=== PATIENT | male | born 1985 | race African-American/Black ===

== ENCOUNTER → 2021-09-09 | Outpatient (CLI) | payer BC, MEDICAID ==
--- NOTE | 2021-09-09 11:18 | US ---
EXAMINATION TYPE: US abdomen complete DATE OF EXAM: 09/09/2021 COMPARISON: NONE CLINICAL HISTORY: R10.9 Abdominal Pain. Pt states generalized ABD pain and nausea EXAM MEASUREMENTS: Liver Length: 14.2 cm Gallbladder Wall: 0.2 cm CBD: 0.4 cm Spleen: 8.9 cm Right Kidney: 9.8 x 5.2 x 5.8 cm Left Kidney: 10.0 x 6.3 x 5.8 cm Pancreas: wnl, tail obscured by overlying bowel gas Liver: wnl Gallbladder: wnl Evidence for sonographic Wooten's sign: No CBD: wnl Spleen: wnl Right Kidney: wnl, lower pole gassed out Left Kidney: wnl Upper IVC: wnl Abd Aorta: wnl No abnormality visualized to account for pt's symptoms- Results called to Joanne at 's office at time of exam The liver is homogenous. The intrahepatic portion of the IVC and visualized abdominal aorta are with in normal limits. There is no evidence of cholelithiasis. Common bile duct is unremarkable. The vi sualized portions of the pancreas are homogenous. The spleen is unremarkable. Kidneys are symmetric and free of hydronephrosis. No renal lesions are seen. IMPRESSION: No acute findings identified on images saved.
[2021-09-09 11:43] LABS: Basophils % (A) 1 %; Eosinophils # (A) 0.4 k/uL (0-0.7); Eosinophils % (A) 8 %; HCT 47.8 % (39.0-53.0); HGB 15.6 gm/dL (13.0-17.5); Lymphocytes # (A) 1.2 k/uL (1.0-4.8); Lymphocytes % (A) 27 %; MCH 28.7 pg (25.0-35.0); MCHC 32.7 g/dL (31.0-37.0); MCV 87.8 fL (80.0-100.0); Monocytes # (A) 0.4 k/uL (0-1.0); Monocytes % (A) 8 %; Neutrophils # (A) 2.4 k/uL (1.3-7.7); Neutrophils % (A) 53 %; Platelet Count 317 k/uL (150-450); RBC 5.44 m/uL (4.30-5.90); RDW 13.3 % (11.5-15.5); WBC 4.5 k/uL (3.8-10.6)
[2021-09-09 12:08] LABS: Albumin 4.6 g/dL (3.5-5.0); Calcium 10.1 mg/dL (8.4-10.2); Potassium 4.6 mmol/L (3.5-5.1); Total Bilirubin 0.8 mg/dL (0.2-1.3); Total Protein 7.6 g/dL (6.3-8.2)
== END | disposition home or self-care (01) ==
LOC: RADUSWWP 10:35
PROVIDERS: ATTEND Family Medicine
DX: R10.84 Generalized abdominal pain (principal); R11.0 Nausea
CPT/HCPCS: 36415; 76700; 80053; 85025

== ENCOUNTER → 2021-09-16 | Outpatient (CLI) | payer BC ==
--- NOTE | 2021-09-16 14:16 | CT ---
EXAMINATION TYPE: CT abdomen pelvis w con DATE OF EXAM: 09/16/2021 COMPARISON: Ultrasound 09/09/2021 HISTORY: Generalized pain with nausea and constipation CT DLP: 821.1 mGycm Automated exposure control for dose reduction was used. CONTRAST: CT scan of the abdomen pelvis is performed with IV Contrast, patient injected with 100 mL of Isovue 3 00. FINDINGS- LUNG BASES- No significant abnormality is appreciated. LIVER/GB- No gross abnormality is appreciated. PANCREAS- No gross abnormality is seen. SPLEEN- No gross abnormality is seen. ADRENALS- No gross abnormality is seen. KIDNEYS/BLADDER- no hydronephrosis nephrolithiasis or renal mass. BOWEL-bowel gas pattern nonspecific with no obstruction. Small hiatal hernia noted. Portions of the c olon are decompressed limiting evaluation. Correlate with direct visualization as clinically warrante d appendix not seen with certainty. LYMPH NODES- No greater than 1cm abdominal or pelvic lymph nodes areappreciated. OSSEOUS STRUCTURES- No significant abnormality is seen. OTHER- aorta of normal caliber. Vascular calcifications in the pelvis. No sizable fluid collection. IMPRESSION- 1.
== END | disposition home or self-care (01) ==
LOC: RADCTMAIN 11:04
PROVIDERS: ATTEND Family Medicine
DX: K59.00 Constipation, unspecified (principal); K44.9 Diaphragmatic hernia without obstruction or gangrene
CPT/HCPCS: 74177; Q9967

== ENCOUNTER → 2021-09-29 | Outpatient (CLI) | payer BC ==
--- NOTE | 2021-09-29 11:01 | NM ---
EXAMINATION TYPE: NM myocardial SPECT single DATE OF EXAM: 09/29/2021 COMPARISON: NONE HISTORY: Syncope Following administration of 9.6 mCi Tc 99m Sestamibi. Images obtained 55 minutes post injection. FINDINGS: Only rest images are submitted. There is suggestion of a defect along the inferior lateral inferior w all myocardium which likely is artifactual not replicated additional images. Correlate with EKG. Lack of stress images results in essentially nondiagnostic exam. IMPRESSION: Nondiagnostic exam. See above.
== END | disposition home or self-care (01) ==
LOC: RADNMMAIN 08:01
PROVIDERS: ATTEND Family Medicine
DX: R55 Syncope and collapse (principal)
CPT/HCPCS: 78451; A9500

== ENCOUNTER 2021-11-22 22:23 | Emergency (ER) | payer BC ==
[2021-11-22 22:28] VITALS: BP 159/99; RESP 18
[2021-11-22] MEDS ORDERED: IBUPROFEN 600 MG TAB PO STA (22:51)
[2021-11-22] MEDS ORDERED: ACETAMINOPHEN TAB 500 MG TAB PO STA (22:51)
--- NOTE | 2021-11-22 23:04 | ED ---
Headache HPI - General Chief Complaint: Headache Stated Complaint: Headache Time Seen by Provider: 11/22/21 22:45 Mode of arrival: ambulatory Limitations: no limitations - History of Present Illness Initial Comments: 36 year-old male patient presents for evaluation of cough, headache, body aches, and fever. States symptoms started yesterday. States he did take tylenol earlier in the day and Mucinex DM around 2100. States medications did not help his symptoms. Denies any sputum production with this cough. Denies any chest pain or shortness of breath. Denies nausea, vomiting, or diarrhea. States he did have Covid in February. Denies having flu shot. Patient denies any recent rash, abdominal pain, constipation, back pain, numbness, tingling, dizziness, weakness, hematuria, dysuria, urinary urgency, urinary frequency, visual changes, or any other complaints. - Related Data Previous Rx's Medication Instructions Recorded Dicyclomine [Bentyl] 10 mg PO TID #20 capsule 01/20/15 metroNIDAZOLE [Flagyl] 500 mg PO Q8HR #60 tab 01/28/15 Allergies Allergy/AdvReac Type Severity Reaction Status Date / Time Penicillins Allergy Anaphylaxis Verified 11/22/21 22:28 Review of Systems ROS Statement: Those systems with pertinent positive or pertinent negative responses have been documented in the HPI. ROS Other: All systems not noted in ROS Statement are negative. Past Medical History Past Medical History: No Reported History Additional Past Medical History / Comment(s): migraines, constipation, diarrhea, blood in stool History of Any Multi-Drug Resistant Organisms: None Reported Past Surgical History: No Surgical Hx Reported Additional Past Surgical History / Comment(s): dental Past Anesthesia/Blood Transfusion Reactions: No Reported Reaction Past Psychological History: No Psychological Hx Reported Smoking Status: Never smoker Past Alcohol Use History: Occasional Past Drug Use History: None Reported General Exam Limitations: no limitations General appearance: alert, in no apparent distress, other (This is a well- developed, well-nourished adult male in no acute distress.) Eye exam: Present: normal appearance, PERRL, EOMI. Absent: scleral icterus, conjunctival injection, periorbital swelling ENT exam: Present: normal exam, normal oropharynx, mucous membranes moist, TM's normal bilaterally Respiratory exam: Present: normal lung sounds bilaterally. Absent: respiratory distress, wheezes, rales, rhonchi, stridor Cardiovascular Exam: Present: regular rate, normal rhythm, normal heart sounds. Absent: systolic murmur, diastolic murmur, rubs, gallop, clicks GI/Abdominal exam: Present: soft, normal bowel sounds. Absent: distended, tenderness, guarding, rebound, rigid Neurological exam: Present: alert, oriented X3, CN II-XII intact Psychiatric exam: Present: normal affect, normal mood Skin exam: Present: warm, dry, intact, normal color. Absent: rash Course Vital Signs 11/22/21 22:24 Temperature 102.0 F H Pulse Rate 114 H Respiratory 18 Rate Blood Pressure 159/99 O2 Sat by Pulse 98 Oximetry Medical Decision Making - Medical Decision Making 36 year-old male patient presents to the emergency department today for evaluation of headache, fever, body aches, cough, and congestion. He was 102F on arrival. He lungs are clear to auscultation, abdomen soft and nontender. He was given Tylenol and Motrin. Chest x-ray negative. Tested negative for cold did and influenza. I did discuss findings and results with him. We discussed viral syndrome as a cause for his symptoms. We discussed possibility of false negatives on his PCR tests. He will be discharged with instructions to take, Motrin for fevers. Increase fluids. Rest. Return parameters were discussed in detail. He verbalizes understanding and agrees with this plan. My attending is Dr. Childers. - Lab Data Lab Results 11/22/21 11/22/21 Range/Units 22:31 23:09 Coronavirus (PCR) Not Detected (Not Detectd) Influenza Type A RNA Not Detected (Not Detectd) Influenza Type B (PCR) Not Detected (Not Detectd) - Radiology Data Radiology results: report reviewed, image reviewed 2 views of the chest are obtained. Report was reviewed in its entirety. Impression by Dr. Betancur shows normal chest. Disposition Clinical Impression: Viral syndrome, Upper respiratory infection Disposition: HOME SELF-CARE Condition: Good Instructions (If sedation given, give patient instructions): Upper Respiratory Infection (ED), Viral Syndrome (ED) Additional Instructions: Tips to help you feel better: -Maintain adequate fluid intake - especially water. -Rest, you are healing your body will require extra sleep. -Eat even if you do not feel like it - broth, jello, toast are fine if you cannot eat full meals. -Take tylenol and motrin alternating (if you have no allergies or have not been instructed to avoid these medications) to help with body aches and fevers. -Obtain over the counter vitamin C, zinc, and vitamin D3. -Take medications as prescribed. Follow-up with your primary care physician for recheck in 1-2 days. Return for any new, worsening, or concerning symptoms. Is patient prescribed a controlled substance at d/c from ED?: No Referrals: Ernesto Dowd MD [Primary Care Provider] - 1-2 days Time of Disposition: 00:19
--- NOTE | 2021-11-23 00:15 | XR ---
EXAMINATION TYPE: XR chest 2V DATE OF EXAM: 11/23/2021 COMPARISON: NONE HISTORY: Headache TECHNIQUE: 2 views FINDINGS: Heart and mediastinum are normal. Lungs are clear. Diaphragm is normal. Bony thorax is inta ct. IMPRESSION: Normal chest.
[2021-11-23 00:32] VITALS: PULSE 89; TEMP 99.2
== END 2021-11-23 00:32 | disposition home or self-care (01) ==
LOC: EC 22:23
DX: J06.9 Acute upper respiratory infection, unspecified (principal); G40.909 Epilepsy, unspecified, not intractable, without status epilepticus; B34.9 Viral infection, unspecified; Z72.89 Other problems related to lifestyle
CPT/HCPCS: 71046; 87502; 87635; 99284

== ENCOUNTER 2021-12-21 11:12 | Emergency (ER) | payer BC ==
[2021-12-21 11:16] VITALS: BP 148/101; PULSE 68; RESP 18; TEMP 98.2
--- NOTE | 2021-12-21 12:34 | ED ---
General Adult HPI - General Chief complaint: Upper Respiratory Infection Stated complaint: covid test Time Seen by Provider: 12/21/21 11:19 Source: patient Mode of arrival: ambulatory Limitations: no limitations - History of Present Illness Initial comments: 36-year-old male presents to the emergency room for a chief complaint of COVID- 19 test. Patient states that he was exposed to COVID-19 4 days ago. States that his work wanted him to have a negative test before returning. Patient denies any symptoms or fevers.Patient has no other complaints at this time including shortness of breath, chest pain, abdominal pain, nausea or vomiting, headache, or visual changes. - Related Data Previous Rx's Medication Instructions Recorded Dicyclomine [Bentyl] 10 mg PO TID #20 capsule 01/20/15 metroNIDAZOLE [Flagyl] 500 mg PO Q8HR #60 tab 01/28/15 Allergies Allergy/AdvReac Type Severity Reaction Status Date / Time Penicillins Allergy Anaphylaxis Verified 12/21/21 11:42 Review of Systems ROS Statement: Those systems with pertinent positive or pertinent negative responses have been documented in the HPI. ROS Other: All systems not noted in ROS Statement are negative. Past Medical History Past Medical History: No Reported History Additional Past Medical History / Comment(s): migraines, constipation, diarrhea, blood in stool History of Any Multi-Drug Resistant Organisms: None Reported Past Surgical History: No Surgical Hx Reported Additional Past Surgical History / Comment(s): dental Past Anesthesia/Blood Transfusion Reactions: No Reported Reaction Past Psychological History: No Psychological Hx Reported Smoking Status: Never smoker Past Alcohol Use History: Occasional Past Drug Use History: None Reported General Exam Limitations: no limitations General appearance: alert, in no apparent distress Head exam: Present: atraumatic Eye exam: Present: normal appearance, PERRL, EOMI. Absent: scleral icterus, conjunctival injection ENT exam: Present: normal exam, mucous membranes moist Neck exam: Present: normal inspection, full ROM. Absent: tenderness Respiratory exam: Absent: respiratory distress Neurological exam: Present: alert Course Vital Signs 12/21/21 11:13 Temperature 98.2 F Pulse Rate 68 Respiratory 18 Rate Blood Pressure 148/101 O2 Sat by Pulse 100 Oximetry Medical Decision Making - Medical Decision Making Vitals are stable. Patient is well appearing. Covid test is negative. Patient can be discharged home to follow up with primary care. - Lab Data Lab Results 12/21/21 Range/Units 11:19 Coronavirus (PCR) Not Detected (Not Detectd) Disposition Clinical Impression: Lab test negative for COVID-19 virus Disposition: HOME SELF-CARE Condition: Good Instructions (If sedation given, give patient instructions): Coronavirus Disease 2019 (COVID-19) Additional Instructions: You had a negative covid test today, please return to ER with any concerning symptoms Is patient prescribed a controlled substance at d/c from ED?: No Referrals: Ernesto Dowd MD [Primary Care Provider] - 1-2 days Time of Disposition: 12:34
== END 2021-12-21 12:33 | disposition home or self-care (01) ==
LOC: EC 11:12
DX: Z20.822 Contact with and (suspected) exposure to COVID-19 (principal); Z88.0 Allergy status to penicillin
CPT/HCPCS: 87635; 99282